=== PATIENT | male | born 1940 | race Caucasian/White ===

== ENCOUNTER 2017-06-16 14:46 | Inpatient (IN) | payer OTHER ==
[~2017-06-16] VITALS: Ht 182.9 cm; Wt 82.1 kg
--- NOTE | ~2017-06-16 | EKG ---
[address] [address] ELECTROCARDIOGRAM REPORT Name: ASAD LEE Room #: 455-P ADM IN M.R.#: [id number] Admission: 06/16/17 Attend Phys: Aydin Franks MD Discharge: Date of : 44 Report #: [id number] THIS REPORT FOR: //name// [facility] ED Test Date: 2017-06-16 Test Time: 15:04:15 Pat Name: ASAD LEE Department: Room: 454 P Gender: M Hematology Specialist: MIGUEL ANGEL : 1940 Requested By: Yusuf Stephen Order Number: [id number] MD: Murray Gurrola Measurements Intervals [place] Rate: 78 P: DC: QRS: 1 QRSD: 88 T: 6 QT: 387 QTc: 441 Interpretive Statements Atrial flutter Abnormal R-wave progression, early transition Borderline T wave abnormalities Compared to ECG 11/23/2011 06:25:20 Sinus rhythm no longer present T-wave abnormality still present Electronically Signed On 06-16-2017 22:24:23 CDT by Murray Gurrola [email or web address] <ELECTRONICALLY SIGNED> By: Murray Gurrola MD 06/16/17 2224 [id number] Murray Gurrola MD /EPI
--- NOTE | ~2017-06-16 | 2DMMODE ---
[facility] [address] [place] [address] 2 D/M-MODE ECHOCARDIOGRAM Name: ASAD LEE EFREN Room #: 227-P ADM IN M.R.#: [id number] Admission: 06/16/17 Attend Phys: Aydin Franks, Discharge: Date of : 44 Date of Service: 06/19/17 1540 Report #: [id number] THIS REPORT FOR: //name// APPROVED REPORT Study performed: 06/19/2017 14:59:18 EXAM: Comprehensive 2D, Doppler, and color-flow Echocardiogram Patient Location: Echo lab Room #: 227 Status: routine BSA: 2.04 HR: 94 bpm BP: 114/80 mmHg Rhythm: Atrial Fibrillation Other Information Study Quality: Good Indications Fall. Hx: Afib, CABG 2D Dimensions RVDd: 35.72 mm LVEF(%): 63.29 (>50%) IVSd: 10.49 (7-11mm) LVOT Diam: 21.97 (18-24mm) LVDd: 43.04 mm PWd: 10.22 (7-11mm) Ascending Ao: 37.50 (22-36mm) LVDs: 28.39 (25-40mm) Aortic Root: 39.02 mm Barajas's LVEF: 63.29 % Volumes Left Atrial Volume (Systole) Single Plane 4CH: 69.94 mL Single Plane 2CH: 78.06 mL LA ESV Index: 39.00 mL/m2 Aortic Valve AoV Peak Benito.: 1.49 m/s AO Peak Gr.: 8.98 mmHg LVOT Max P.08 mmHg LVOT Max V: 1.13 m/s BIENVENIDO Vmax: 2.87 cm2 Mitral Valve MV Decel. Time: 156.73 ms MV E Max Benito.: 1.20 m/s [facility] [place] [address] [place] [address] 2 D/M-MODE ECHOCARDIOGRAM Name: ROSAASAD EFREN Room #: 227-P [facility] IN ..#: [id number] Admission: 06/16/17 Attend Phys: Aydin Franks, Discharge: Date of : 44 Date of Service: 06/19/17 1540 Report #: [id number] Pulmonary Valve PV Peak Benito.: 1.12 m/s PV Peak Gr.: 4.98 mmHg Tricuspid Valve TR Peak Benito.: 2.69 m/s TR Peak Gr.: 29.08 mmHg Left Ventricle The left ventricle is normal size. There is normal LV segmental wall motion. There is normal left ventricular wall thickness. Left ventricular systolic function is normal. LVEF is 60-65%. This study is not technically sufficient to allow evaluation of the LV diastolic function due to atrial fibrillation. Right Ventricle The right ventricle is normal size. The right ventricular systolic function is normal. Atria Left atrium is dilated. The right atrium size is normal. Aortic Valve The Aortic valve is sclerotic. Trace aortic regurgitation. There is no aortic valvular stenosis. Mitral Valve Mitral valve leaflets are thickened. Moderate mitral annular calcification. Mild to moderate mitral regurgitation. No evidence of mitral valve stenosis. Tricuspid Valve The tricuspid valve is normal in structure. Mild tricuspid regurgitation. Estimated PAP is 30mmHg plus the right atrial pressure Pulmonic Valve The pulmonary valve is normal in structure. Trace pulmonic regurgitation. Great Vessels Aortic root is mildly dilated at 3.9cm. The ascending aorta is at the upper limits of normal. IVC is not well visualized. Pericardium [facility] [address] [place] [address] 2 D/M-MODE ECHOCARDIOGRAM Name: ASAD LEE EFREN Room #: 227-P [facility] IN M.R.#: [id number] Admission: 06/16/17 Attend Phys: Aydin Franks, Discharge: Date of : 44 Date of Service: 06/19/17 1540 Report #: [id number] There is no pericardial effusion. <Conclusion> The left ventricle is normal size. There is normal left ventricular wall thickness. Left ventricular systolic function is normal. The right ventricle is normal size. Left atrium is dilated. The Aortic valve is sclerotic. Mitral valve leaflets are thickened. Moderate mitral annular calcification. Mild to moderate mitral regurgitation. Mild tricuspid regurgitation. Estimated PAP is 30mmHg plus the right atrial pressure <ELECTRONICALLY SIGNED> By: Murray Gurrola MD 06/19/17 1540 [id number] Murray Gurrola MD /INF
[~2017-06-16 14:46] MED LIST: NORCO 5-325 TA1 EACH PO; TAMSULOSIN HCL0.4 M1 PO; ZOFRAN4 MG PO
[2017-06-16] MEDS ORDERED: ELIQUIS2.5 MG PO (14:54)
[2017-06-16 15:37] LABS: ABSOLUTE NEUTROPHILS 2.4 thou/uL (1.4-8.2); BASOPHILS 0.7 % (0.0-2.0); HEMATOCRIT 32.9 % (42.0-52.0); HEMOGLOBIN 11.5 gm/dL (14.0-18.0); LYMPHOCYTES 18.4 % (24.0-44.0); MCH 37.3 pg (26.0-34.0); MCV 106.8 fL (80.0-100.0); MONOCYTES 11.6 % (1.0-8.0); POLYS 65.3 % (36.0-66.0); RBC 3.08 mil/uL (4.50-6.00); RDW 14.3 % (10.5-14.5); WBC 3.7 thou/uL (4.0-11.0)
[2017-06-16 16:05] LABS: PLATELET COUNT 85 thou/uL (150-400)
[2017-06-16 16:46] LABS: CALCIUM 8.7 mg/dL (8.5-10.1); CREATININE 1.6 mg/dL (0.7-1.3); POTASSIUM 5.5 mmol/L (3.5-5.1)
[2017-06-16 18:49] VITALS: BP 133/79
[2017-06-16 19:44] VITALS: BP 133/79
[2017-06-17 04:15] VITALS: BP 108/74
[2017-06-17] MEDS ORDERED: ALDACTONE50 MG PO (04:17)
[2017-06-17] MEDS ORDERED: PRAVACHOL40 MG PO (04:18)
[2017-06-17] MEDS ORDERED: AMITRIPTYLINE H10 M3 PO (04:18)
[2017-06-17] MEDS ORDERED: OMEPRAZOLE40 MG PO (04:18)
[2017-06-17] MEDS ORDERED: CARVEDILOL3.125 MG PO (04:18)
[2017-06-17] MEDS ORDERED: LEVOTHYROXINE125 MCG PO (04:20)
[2017-06-17 05:50] LABS: HEMATOCRIT 31.3 % (42.0-52.0); HEMOGLOBIN 10.8 gm/dL (14.0-18.0); MCH 36.9 pg (26.0-34.0); MCHC 34.6 g/dL (28.0-37.0); MCV 106.5 fL (80.0-100.0); RBC 2.94 mil/uL (4.50-6.00); RDW 14.3 % (10.5-14.5); WBC 4.2 thou/uL (4.0-11.0)
[2017-06-17 05:58] LABS: CALCIUM 8.4 mg/dL (8.5-10.1); CREATININE 1.5 mg/dL (0.7-1.3); MAGNESIUM 1.4 mg/dL (1.8-2.4); POTASSIUM 4.9 mmol/L (3.5-5.1)
[2017-06-17 06:29] LABS: FOLIC ACID 5.1 ng/mL (8.6-58.9)
[2017-06-17 08:00] VITALS: BP 121/76
[2017-06-17 16:00] VITALS: BP 121/79
[2017-06-17 19:12] LABS: URINE BILIRUBIN NEGATIVE (Negative); URINE BLOOD NEGATIVE (Negative); URINE CLARITY CLEAR; URINE COLOR YELLOW; URINE GLUCOSE-RANDOM* NEGATIVE (Negative); URINE KETONES NEGATIVE (Negative); URINE LEUKOCYTES-REFLEX NEGATIVE (Negative); URINE NITRITE-REFLEX NEGATIVE (Negative); URINE PROTEIN (DIPSTICK) NEGATIVE (Negative)
[2017-06-17 19:34] VITALS: BP 134/90
[2017-06-18 04:24] VITALS: BP 120/78
[2017-06-18 05:46] LABS: HEMOGLOBIN 10.5 gm/dL (14.0-18.0); MCH 37.2 pg (26.0-34.0); MCHC 34.8 g/dL (28.0-37.0); RBC 2.81 mil/uL (4.50-6.00); WBC 3.5 thou/uL (4.0-11.0)
[2017-06-18 05:59] LABS: CREATININE 1.3 mg/dL (0.7-1.3); MAGNESIUM 1.3 mg/dL (1.8-2.4); POTASSIUM 4.5 mmol/L (3.5-5.1)
[2017-06-18 08:51] VITALS: BP 109/67
[2017-06-18 16:21] VITALS: BP 117/83
[2017-06-18 19:25] VITALS: BP 127/91
[2017-06-19 07:15] VITALS: BP 114/80
[2017-06-19 08:13] LABS: HEMATOCRIT 29.9 % (42.0-52.0); HEMOGLOBIN 10.3 gm/dL (14.0-18.0); MCHC 34.4 g/dL (28.0-37.0); MCV 107.6 fL (80.0-100.0); RBC 2.78 mil/uL (4.50-6.00); RDW 14.2 % (10.5-14.5); WBC 3.6 thou/uL (4.0-11.0)
[2017-06-19 08:25] LABS: CALCIUM 7.9 mg/dL (8.5-10.1); CREATININE 1.3 mg/dL (0.7-1.3); MAGNESIUM 1.6 mg/dL (1.8-2.4); POTASSIUM 4.2 mmol/L (3.5-5.1)
[2017-06-19 13:11] VITALS: BP 114/80
[2017-06-19 20:30] VITALS: BP 121/86
== END 2017-06-19 20:35 | disposition home health service (06) | DRG 682 ==
LOC: ER 14:46 → SICU 17:13 → EROBS 17:13 → 4W 19:12 → SICU 06-18 18:36
PROVIDERS: Internal Medicine; Physician Assistant
DX: N17.9 Acute kidney failure, unspecified (principal); E43 Unspecified severe protein-calorie malnutrition; E87.1 Hypo-osmolality and hyponatremia; S02.2XXA Fracture of nasal bones, initial encounter for closed fracture; I10 Essential (primary) hypertension; I95.1 Orthostatic hypotension; E87.5 Hyperkalemia; S00.83XA Contusion of other part of head, initial encounter; D69.6 Thrombocytopenia, unspecified; I48.91 Unspecified atrial fibrillation; E53.8 Deficiency of other specified B group vitamins; Z79.899 Other long term (current) drug therapy; Z90.49 Acquired absence of other specified parts of digestive tract; Z95.1 Presence of aortocoronary bypass graft; Z68.24 Body mass index [BMI] 24.0-24.9, adult; W18.39XA Other fall on same level, initial encounter; Y93.01 Activity, walking, marching and hiking; Y92.89 Other specified places as the place of occurrence of the external cause; Y99.8 Other external cause status
CPT/HCPCS: 10045; 15002